=== PATIENT | female | born 1995 | race Caucasian/White ===

== ENCOUNTER 2021-12-22 05:19 | Inpatient (IN) | payer MEDICAID ==
[2021-12-22] VITALS (42 sets, daily range): BP systolic 94–128; BP diastolic 50–74
[~2021-12-22] VITALS: Ht 176 cm; Wt 94.4 kg
[2021-12-22] MEDS ORDERED: LIDOCAINE/EPI 2% 1:200,00 (XYLOCAINE) 10 ML VIAL INJ PRN (06:00)
[2021-12-22] MEDS ORDERED: CATHETER FLUSH 10 ML SYR IV SCH (06:00)
[2021-12-22] MEDS ORDERED: MINERAL OIL 30 ML TOP PRN (06:00)
[2021-12-22] MEDS ORDERED: D5 LR IV SOLUTION 1,000 ML IV SCH (06:00)
[2021-12-22] MEDS ORDERED: D5 LR IV SOLUTION 1,000 ML IV ONE (06:00)
[2021-12-22 06:07] LABS: BASOPHILS % (AUTO) 0 % (0-10); EOSINOPHILS # (AUTO) 0.1 10^3/uL (0.0-0.3); EOSINOPHILS % (AUTO) 1 % (0-10); HEMATOCRIT 30 % (35-52); HEMOGLOBIN 9.7 g/dL (11.5-16.0); LYMPHOCYTES # (AUTO) 2.5 10^3/uL (1.0-4.0); LYMPHOCYTES % (AUTO) 22 % (12-44); MEAN CORPUSCULAR HEMOGLOBIN 27 pg (25-34); MEAN CORPUSCULAR HGB CONC 33 g/dL (32-36); MEAN CORPUSCULAR VOLUME 82 fL (80-99); MEAN PLATELET VOLUME 9.5 fL (9.0-12.2); MONOCYTES # (AUTO) 0.7 10^3/uL (0.0-1.0); MONOCYTES % (AUTO) 6 % (0-12); NEUTROPHILS # (AUTO) 8.1 10^3/uL (1.8-7.8); NEUTROPHILS % (AUTO) 70 % (42-75); PLATELET COUNT 364 10^3/uL (130-400); WHITE BLOOD COUNT 11.6 10^3/uL (4.3-11.0)
[2021-12-22 06:58] LABS: BILIRUBIN,URINE NEGATIVE (NEGATIVE); GLUCOSE, URINE (UA) NEGATIVE (NEGATIVE); KETONES,URINE NEGATIVE (NEGATIVE); LEUKOCYTE ESTERASE ,URINE NEGATIVE (NEGATIVE); NITRITE,URINE NEGATIVE (NEGATIVE); PH,URINE 6.5 (5-9); PROTEIN,URINE TRACE (NEGATIVE)
[2021-12-22 07:10] LABS: BACTERIA,URINE NEGATIVE /HPF; CLARITY,URINE CLEAR; COLOR,URINE YELLOW; RBC,URINE RARE /HPF; WBC,URINE 0-2 /HPF
[2021-12-22 07:11] LABS: AMORPHOUS SEDIMENT,UR RARE AMOR URATES /LPF
[2021-12-22] MEDS ORDERED: fentaNYL 2 mcg/ml BUPIVA 0.125 100 ML ONE (07:16)
[2021-12-22] MEDS ORDERED: BUPIVACAINE 0.25% 30 ML (SENSORCAINE) VIAL ONE (07:24)
[2021-12-22] MEDS ORDERED: fentaNYL INJ 100 MCG/2 ML AMP ONE (07:24)
[2021-12-22] MEDS ORDERED: ONDANSETRON 4 MG/2 ML (SDV) Z0FRAN IV PRN (07:30)
[2021-12-22] MEDS ORDERED: CATHETER FLUSH 10 ML SYR IV PRN (07:30)
[2021-12-22] MEDS ORDERED: LACTATED RINGERS 1,000 ML IV ONE (07:30)
[2021-12-22] MEDS ORDERED: diphenhydrAMINE 50 MG/ML INJ (BENADRYL) IV PRN (07:30)
[2021-12-22] MEDS ORDERED: NALOXONE 0.4 MG/ML 1 ML (NARCAN) VIAL IV PRN (07:30)
[2021-12-22] MEDS ORDERED: fentaNYL 2 mcg/ml BUPIVA 0.125 100 ML IV SCH (07:30)
[2021-12-22] MEDS ORDERED: MECO10005 PO (08:10)
[2021-12-22] MEDS ORDERED: DOXY25TA56 PO (08:10)
[2021-12-22] MEDS ORDERED: PNV91TAB6 PO (08:10)
[2021-12-22] MEDS ORDERED: PYRI100T10 PO (08:10)
--- NOTE | 2021-12-22 08:11 | History & Physical-OB ---
OB - Chief Complaint & HPI Date/Time Date of Admission: Date of Admission: Dec 22, 2021 at 05:19 Date seen by a Provider: Dec 22, 2021 Time Seen by a Provider: 08:15 Chief Complaint/History OB-Reason for Admission/Chief: Rupture of Membranes Hx : 2 Hx Para: 1 Expected Date of Delivery: Dec 29, 2021 Gestational Age in Weeks: 39 Gestational Age in Days: 0 History of Labs O+, antibody neg, RNI. HIV/HepB/HepC/RPR NR. GC/chlamydia neg. 1 hour glucola normal. GBS neg. Anemia with hgb 10.5 at 28 week labs. Other at 39w0d, presented to Labor and Delivery due to spontaneous rupture of membranes at home at 4 am. Has been having contractions for about a week prior to this. Were occurring about every 5 minutes prior to rupture. She denies b leekecia. Allergies and Home Medications Allergies Coded Allergies: No Known Drug Allergies (Unverified , 12/22/21) Patient Home Medication List Home Medication List Reviewed: Yes Doxylamine Succinate (Unisom) 25 Mg Tablet, 25 MG PO HS PRN for NAUSEA/VOMITING, (Reported) Entered as Reported by: ARNIE ABAD on 12/22/21809 Last Action: New Order Mecobalamin (B12 Active) 1,000 Mcg Tab.chew, 1,000 MCG PO DAILY, (Reported) Entered as Reported by: ARNIE ABAD on 12/22/21809 Last Action: New Order Pnv95/Ferrous Fumarate/FA ( Vitamin Tablet) 28 Mg Iron-800 Mcg Tablet, 1 EACH PO DAILY, (Reported) Entered as Reported by: ARNIE ABAD on 12/22/21809 Last Action: New Order Pyridoxine HCl (Vitamin B-6) 100 Mg Tablet, 100 MG PO DAILY, (Reported) Entered as Reported by: ARNIE ABAD on 12/22/21809 Last Action: New Order OB - History Hx of Present Care: Yes Ultrasounds: Normal mid trimester US Obstetrical Complications: None Information Induced Hypertension: No Maternal Gestational Diabetes: No Hemorrhage: No Obstetrical History Hx : 2 Hx Para: 1 Hx # Term Pregnancies: 1 Hx # Pregnancies: 0 Number of Living Children: 1 Hx Termination: No Hx Multiple Gestation: No Hx Ectopic : No Hx Stillbirth: No Hx Complication: No Hx Induced Hypertens: No Hx Maternal Gestational Diabet: No Hx Hemorrhage: No Delivery History Hx Dystocia: No Hx Forceps Assisted Delivery: No Hx Vacuum Extraction Assisted: No Hx Placenta Abnormality: No Hx Distress: No Hx Large For Gestational Age I: No Hx Small for Gestational Age I: No Hx Section: No Hx Vaginal Delivery Post C-Sec: No Hx Blood Disorders: No Adverse Rxn to Tranfusion: No Patient Past Medical History PMHx: Denies SurgHx: Denies Social History/Family History Alcohol Use: Denies Use Recreational Drug Use: No Smoking Cessation: Never smoker Immunizations Influenza Vaccine Up-to-Date: No; Not Current Tetanus Booster (TDap): Less than 5yrs (10/26/2021) Rubella: not immune RPR/VDRL: Negative GBS Status: Negative HBsAG: Negative OB - Admission Exam Physical Exam Vitals: Vital Signs 12/22/21 06:41 Temp 36.6 Pulse 96 Resp 18 Pulse Ox 98 O2 Delivery Room Air HEENT: NCAT Heart: Rhythm Normal Lungs: Clear Abdomen: Non tender Extremities: Normal Cervical Dilatation: 6cm Effacement: 50% Station: -3 Heart Rate: 140's Accelerations: Accelerations Present Decelerations: No Decelerations Short Term Variability: Present Retirement Variability: Average (6-25) Contractions on Admission: < 5 Minutes Apart Intensity: Moderate Labs Laboratory Tests Test 12/22/21 05:30 12/22/21 05:45 Range/Units Urine Color YELLOW Urine Clarity CLEAR Urine pH 6.5 5-9 Urine Specific [place] <=1.005 1.016-1.022 Urine Protein TRACE H NEGATIVE Urine Glucose (UA) NEGATIVE NEGATIVE Urine Ketones NEGATIVE NEGATIVE Urine Nitrite NEGATIVE NEGATIVE Urine Bilirubin NEGATIVE NEGATIVE Urine Urobilinogen 0.2 < = 1.0 MG/DL Urine Leukocyte Esterase NEGATIVE NEGATIVE Urine RBC (Auto) TRACE-I H NEGATIVE Urine RBC RARE /HPF Urine WBC 0-2 /HPF Urine Squamous Epithelial Cells 2-5 /HPF Urine Crystals PRESENT H /LPF Urine Amorphous Sediment RARE SEGUNDO URATES H /LPF Urine Bacteria NEGATIVE /HPF Urine Casts NONE /LPF Urine Mucus NEGATIVE /LPF Urine Culture Indicated NO White Blood Count 11.6 H 4.3-11.0 10^3/uL Red Blood Count 3.62 L 3.80-5.11 10^6/uL Hemoglobin 9.7 L 11.5-16.0 g/dL Hematocrit 30 L 35-52 % Mean Corpuscular Volume 82 80-99 fL Mean Corpuscular Hemoglobin 27 25-34 pg Mean Corpuscular Hemoglobin Concent 33 32-36 g/dL Red Cell Distribution Width 12.7 10.0-14.5 % Platelet Count 364 130-400 10^3/uL Mean Platelet Volume 9.5 9.0-12.2 fL Immature Granulocyte % (Auto) 1 % Neutrophils (%) (Auto) 70 42-75 % Lymphocytes (%) (Auto) 22 12-44 % Monocytes (%) (Auto) 6 0-12 % Eosinophils (%) (Auto) 1 0-10 % Basophils (%) (Auto) 0 0-10 % Neutrophils # (Auto) 8.1 H 1.8-7.8 10^3/uL Lymphocytes # (Auto) 2.5 1.0-4.0 10^3/uL Monocytes # (Auto) 0.7 0.0-1.0 10^3/uL Eosinophils # (Auto) 0.1 0.0-0.3 10^3/uL Basophils # (Auto) 0.0 0.0-0.1 10^3/uL Immature Granulocyte # (Auto) 0.1 0.0-0.1 10^3/uL OB - Assessment/Plan/Diagnosis Assessment Admission Dx Term intrauterine Spontaneous rupture of membranes Rubella non-immune GBS negative Admission Status: Inpatient Order (span 2 midnights) Reason for Inpatient Admission: Labor, delivery and Plan Plan: Expectant Management Problems: (1) SROM (spontaneous rupture of membranes) Assessment & Plan: Monitor for onset of active labor, pitocin if necessary. (2) 39 weeks gestation of ARNIE ABAD MD Dec 22, 2021 08:11
[2021-12-22] MEDS ORDERED: OXYTOCIN PRE-MIX DRIP 500 ML IV ONE (10:21)
--- NOTE | 2021-12-22 12:36 | OB Labor & Delivery Record ---
Vag Delivery Note Vag Delivery Note Date of Delivery: 12/22/21 Preoperative Diagnosis: Deborah Keene is a (26 /Para 2 / 1, Gestational Age (wks)39with 0 days Postoperative Diagnosis: Same Surgeon: ARNIE ABAD User Interface Artist: Surinder Mack, [email or web address] Anesthesia: Epidural Delivery Type: Findings: Viable female , apgars 8/9, weight 7#13 Lacerations: periurethral Intact placenta with 3 vessel cord. Body cord, No nuchal cord or shoulder dystocia Estimated Blood Loss: 200 ml Complications: None Condition: Stable Description of Procedure: The patient is a 26 year old female who presented in active labor. She was admitted and informed consent was obtained. Her labor course was unremarkable. She progressed to complete dilatation and began to push. She was then set up for delivery. The 's head was delivered atraumatically in the PREETHI position. The shoulders and remainder of the 's body were then delivered without difficulty. Upon delivery, the was placed on maternal abdomen. After a brief delay, the cord was doubly clamped and cut and the infant was handed off to the pediatric staff. An intact placenta with 3-vessel cord delivered via [place] and there was found to be minimal bleeding.~ Vigorous fundal massage was performed and the fundus was found to be firm. IV oxytocin was given. Examination of the vagina and perineum revealed a periurethral laceration repaired in simple running fashion with 3-0 vicryl rapide suture. Following the repair, sponge, instrument and needle counts were correct. Mom and baby were both in stable condition in the labor suite. Vitals - Labs Vital Signs - I&O Vital Signs Date Time Temp Pulse Resp B/P (MAP) Pulse Ox O2 Delivery O2 Flow Rate FiO2 12/22/21 08:47 74 18 109/57 (74) 98 Room Air 12/22/21 08:32 78 18 108/56 (73) 98 Room Air 12/22/21 08:18 36.8 12/22/21 08:16 88 18 107/60 (76) 97 Room Air 12/22/21 08:13 79 18 110/59 (76) Room Air 12/22/21 08:10 87 18 107/60 (76) 97 Room Air 12/22/21 08:06 89 18 108/57 (74) 98 Room Air 12/22/21 08:04 93 18 108/57 (74) Room Air 12/22/21 08:00 87 18 104/55 (71) 98 Room Air 12/22/21 07:57 82 18 108/56 (73) Room Air 12/22/21 07:54 89 18 111/59 (76) 97 Room Air 12/22/21 07:51 89 18 110/55 (73) 98 Room Air 12/22/21 07:48 79 18 115/58 (77) Room Air 12/22/21 07:45 88 18 108/56 (73) 98 Room Air 12/22/21 07:42 90 18 111/60 (77) 100 Room Air 12/22/21 07:39 88 18 116/64 (81) 100 Room Air 12/22/21 07:36 90 18 116/62 (80) 100 Room Air 12/22/21 07:33 93 18 115/59 (77) Room Air 12/22/21 07:30 93 18 125/61 (82) 90 Room Air 12/22/21 06:41 36.6 96 18 98 Room Air Labs Laboratory Tests 12/22/21 05:30: Urine Color YELLOW, Urine Clarity CLEAR, Urine pH 6.5, Urine Specific [place] <=1.005, Urine Protein TRACEH, Urine Glucose (UA) NEGATIVE, Urine Ketones NEGATIVE, Urine Nitrite NEGATIVE, Urine Bilirubin NEGATIVE, Urine Urobilinogen 0.2, Urine Leukocyte Esterase NEGATIVE, Urine RBC (Auto) TRACE-IH, Urine RBC RARE, Urine WBC 0-2, Urine Squamous Epithelial Cells 2-5, Urine Crystals PRESENTH, Urine Amorphous Sediment RARE SEGUNDO URATESH, Urine Bacteria NEGATIVE, Urine Casts NONE, Urine Mucus NEGATIVE, Urine Culture Indicated NO 12/22/21 05:45: White Blood Count 11.6H, Red Blood Count 3.62L, Hemoglobin 9.7L, Hematocrit 30L, Mean Corpuscular Volume 82, Mean Corpuscular Hemoglobin 27, Mean Corpuscular Hemoglobin Concent 33, Red Cell Distribution Width 12.7, Platelet Count 364, Mean Platelet Volume 9.5, Immature Granulocyte % (Auto) 1, Neutrophils (%) (Auto) 70, Lymphocytes (%) (Auto) 22, Monocytes (%) (Auto) 6, Eosinophils (%) (Auto) 1, Basophils (%) (Auto) 0, Neutrophils # (Auto) 8.1H, Lymphocytes # (Auto) 2.5, Monocytes # (Auto) 0.7, Eosinophils # (Auto) 0.1, Basophils # (Auto) 0.0, Immature Granulocyte # (Auto) 0.1 ARNIE ABAD MD Dec 22, 2021 12:36
[2021-12-22] MEDS ORDERED: BENZOCAINE/MENTHOL (DERMOPLAST) 56 ML CAN TP PRN (12:45)
[2021-12-22] MEDS ORDERED: MEASLES,MUMPS,RUBELLA 1 EA INJ SQ ONE (12:45)
[2021-12-22] MEDS ORDERED: WITCH HAZEL(TUCKS) 40 EA JAR TOP PRN (12:45)
[2021-12-22] MEDS ORDERED: OXYTOCIN PRE-MIX DRIP 500 ML IV SCH (12:45)
[2021-12-22] MEDS: IBUPROFEN 600 MG (MOTRIN) TAB PO SCH ×2 (14:03→20:09)
[2021-12-22] MEDS: DOCUSATE SODIUM 100 MG (COLACE) CAP PO SCH (20:07)
[2021-12-22] MEDS: CATHETER FLUSH 10 ML SYR IV SCH (22:19)
[2021-12-23] VITALS: BP 124/58
[2021-12-23] MEDS: IBUPROFEN 600 MG (MOTRIN) TAB PO SCH ×3 (02:25→14:13)
[2021-12-23 02:29] VITALS: BP 118/61
[2021-12-23 06:04] LABS: BASOPHILS # (AUTO) 0.1 10^3/uL (0.0-0.1); BASOPHILS % (AUTO) 0 % (0-10); EOSINOPHILS # (AUTO) 0.1 10^3/uL (0.0-0.3); EOSINOPHILS % (AUTO) 1 % (0-10); HEMATOCRIT 31 % (35-52); HEMOGLOBIN 9.5 g/dL (11.5-16.0); LYMPHOCYTES # (AUTO) 3.1 10^3/uL (1.0-4.0); LYMPHOCYTES % (AUTO) 21 % (12-44); MEAN CORPUSCULAR HEMOGLOBIN 27 pg (25-34); MEAN CORPUSCULAR HGB CONC 31 g/dL (32-36); MEAN CORPUSCULAR VOLUME 86 fL (80-99); MEAN PLATELET VOLUME 9.9 fL (9.0-12.2); MONOCYTES % (AUTO) 7 % (0-12); NEUTROPHILS # (AUTO) 10.2 10^3/uL (1.8-7.8); NEUTROPHILS % (AUTO) 69 % (42-75); PLATELET COUNT 327 10^3/uL (130-400); WHITE BLOOD COUNT 14.7 10^3/uL (4.3-11.0)
[2021-12-23 06:15] VITALS: BP 109/57
[2021-12-23] MEDS: CATHETER FLUSH 10 ML SYR IV SCH (06:42)
--- NOTE | 2021-12-23 07:30 | Anesthesia-Regional Post-Op ---
Regional Patient Condition Mental Status: Alert, Oriented x3 Circulation: Same as Pre-Op Headache: Absent Sensation: Full Recovery Motor Block: Absent Post Op Complications Complications None Follow Up Care/Instructions Patient Instructions None needed. Anesthesia/Patient Condition Patient is doing well, no complaints, stable vital signs, no apparent adverse anesthesia problems. No complications reported per nursing. D/C home per [facility] Criteria: Yes ROOSEVELT FLORES CRNA Dec 23, 2021 07:30
[2021-12-23] MEDS: DOCUSATE SODIUM 100 MG (COLACE) CAP PO SCH (08:27)
[2021-12-23 08:30] VITALS: BP 117/72
[2021-12-23] MEDS ORDERED: MEASLES,MUMPS,RUBELLA 1 EA INJ SQ ONE (10:00)
[2021-12-23] MEDS ORDERED: FERR325T18 PO (10:29)
[2021-12-23] MEDS ORDERED: IBUP-844 PO (10:29)
--- NOTE | 2021-12-23 10:30 | Discharge Summary ---
Discharge Summary Hospital Course Problems/Diagnosis: (1) Spontaneous vaginal delivery Status: Acute Assessment & Plan: Pt presented in active labor after SROM at home and had uncomplicated vaginal delivery with periurethral laceration repaired, with routine course (2) Anemia in , delivered, current hospitalization Status: Acute Assessment & Plan: Started on ferrous sulfate Hospital Course Date of Admission: Dec 22, 2021 at 05:19 Admission Diagnosis : Family Physician/Provider: Hanh Kinsey MD Date of Discharge: 12/23/21 Discharge Diagnosis: See problem list Hospital Course: See problem list Labs and Pending Lab Test: Laboratory Tests 12/23/21 05:25: White Blood Count 14.7H, Red Blood Count 3.58L, Hemoglobin 9.5L, Hematocrit 31L, Mean Corpuscular Volume 86, Mean Corpuscular Hemoglobin 27, Mean Corpuscular Hemoglobin Concent 31L, Red Cell Distribution Width 12.8, Platelet Count 327, Mean Platelet Volume 9.9, Immature Granulocyte % (Auto) 1, Neutrophils (%) (Auto) 69, Lymphocytes (%) (Auto) 21, Monocytes (%) (Auto) 7, Eosinophils (%) (Auto) 1, Basophils (%) (Auto) 0, Neutrophils # (Auto) 10.2H, Lymphocytes # (Auto) 3.1, Monocytes # (Auto) 1.0, Eosinophils # (Auto) 0.1, Basophils # (Auto) 0.1, Immature Granulocyte # (Auto) 0.2H Home Meds Active Reported Unisom (Doxylamine Succinate) 25 Mg Tablet 25 Mg PO HS PRN B12 Active (Mecobalamin) 1,000 Mcg Tab.chew 1,000 Mcg PO DAILY Vitamin B-6 (Pyridoxine HCl) 100 Mg Tablet 100 Mg PO DAILY Vitamin Tablet (Pnv95/Ferrous Fumarate/FA) 28 Mg Iron-800 Mcg Tablet 1 Each PO DAILY Assessment/Pt DC Instructions Follow up in 6 weeks for visit Discharge Diet: Regular Diet Activity as Tolerated: Yes (avoid strenuous activity x 6 weeks) Discharge Physical Examination Allergies: Coded Allergies: No Known Drug Allergies (Unverified , 12/22/21) General Appearance: No Apparent Distress, WD/WN Respiratory: Lungs Clear, Normal Breath Sounds Cardiovascular: Regular Rate, Rhythm, No Murmur Gastrointestinal: Other (fundus firm below umbilicus, appropriately ttp) Extremity: No Pedal Edema Skin: Normal Color, Warm/Dry Neurologic/Psychiatric: Normal Mood/Affect ARNIE ABAD MD Dec 23, 2021 10:30
[2021-12-23 14:10] VITALS: BP 110/64
[2021-12-23 15:05] VITALS: BP 110/64
== END 2021-12-23 15:05 | disposition home or self-care (01) | DRG 807 ==
LOC: LDRP 05:19
PROVIDERS: ADMIT Family Medicine; ATTEND Family Medicine
PROC: 10E0XZZ Delivery of Products of Conception, External Approach (ICD-10-PCS; principal; 2021-12-22)
PROC: 0UQMXZZ Repair Vulva, External Approach (ICD-10-PCS; 2021-12-22)
DX: O99.02 Anemia complicating childbirth (principal); Z37.0 Single live birth; O71.82 Other specified trauma to perineum and vulva; Z3A.39 39 weeks gestation of pregnancy; D64.9 Anemia, unspecified; O69.89X0 Labor and delivery complicated by other cord complications, not applicable or unspecified; Z23 Encounter for immunization; Z28.310 Unvaccinated for COVID-19
CPT/HCPCS: 36415; 81000; 85025; 86850; 86900; 86901; 90707